=== PATIENT | female | born 1970 | race Caucasian/White ===

== ENCOUNTER → 2017-03-28 | Day surgery (SDC) | payer BC ==
[~2017-03-28] MED LIST: ALPR1TAB2 PO; CYAN10005 PO; EPINEPHrine SYRINGE 1 MG/10 ML SYRINGE IV ONE; EPINEPHrine SYRINGE 1 MG/10 ML SYRINGE ONE; HYDROmorphone 2 MG/ML VIAL IV PRN; IV RINGERS,LACTATED 1000ML 1,000 ML IV SCH; LIDOCAINE 1% 1 ML SYRINGE. ID PRN; LIDOCAINE 2% PF Vial for OR 5 ML VIAL. ONE; MIDAZOLAM HCL/PF 2 MG/2 ML VIAL. IV PRN; MORPHINE SULFATE 2 MG/ML DISP.SYRIN. IV PRN; OMEG92TA PO; ONDANSETRON PF 4 MG/2 ML VIAL. IV PRN; PRAS50CA PO; PROCHLORPERAZINE 10 MG/2 ML VIAL. IV PRN; PROPOFOL 40 ML IV ONE; fentaNYL PF VIAL 100 MCG/2 ML VIAL IV PRN
[2017-03-28 10:13] LABS: NEG OBC UR NEG; POS OBC UR POS
[2017-03-28 12:52] VITALS: BP 174/85
--- NOTE | 2017-03-28 13:46 | PREOP HP ---
DATE OF SERVICE: 03/28/2017 REQUESTING PHYSICIAN: ____. REASON FOR PROCEDURE: Change in bowel habits and rectal bleeding. HISTORY OF PRESENT ILLNESS: This is a 47-year-old woman who presented with change in bowel habits and rectal bleeding. ALLERGIES: ADHESIVE TAPE. PAST MEDICAL HISTORY: Anxiety, depression, hemorrhoid, and sleep apnea. FAMILY MEDICAL HISTORY: Significant for liver disease. SOCIAL HISTORY: No tobacco, alcohol, or IV drug abuse. MEDICATIONS: Xanax, , and vitamin D. PAST SURGICAL HISTORY: Parathyroidectomy and uterine ablation. REVIEW OF SYSTEMS: A 13-point review of systems was done. It is positive as per HPI and otherwise negative. PHYSICAL EXAMINATION: VITAL SIGNS: She is afebrile. Her vital signs are stable. GENERAL: She is a well-developed, well-nourished female, in no apparent distress. HEENT: Oropharynx is clear. CARDIOVASCULAR: S1, S2. LUNGS: Clear. ABDOMEN: Normoactive bowel sounds. Soft, nontender, nondistended. EXTREMITIES: No edema. NEUROLOGIC: Awake, alert, and oriented x 3. ASSESSMENT AND PLAN: 1. Change in bowel habits. 2. Rectal bleeding. Risks and benefits of the procedure including bleeding, perforation, were explained and she has agreed to proceed. Thank you for allowing me to participate in the care of this patient. PERLA MCKEON MD DR: SOMMER/maria luisa JOB#: [id number] / [id number]
--- NOTE | 2017-04-01 13:47 | PATHOLOGY ---
PATHOLOGY REPORT * * * * * * * * FINAL DIAGNOSIS: Colon biopsies, sigmoid colon polyp: - Tubular adenoma. COMMENT: Sections of the sigmoid colon biopsies reveal a tubular adenoma. There are three larger polypoid segments of tubular adenoma ranging from 1.1 to 1.5 cm in greatest dimension. There are additional smaller segments of tubular adenoma. There is no high-grade dysplasia or evidence of malignancy. REPORT ELECTRONICALLY SIGNED BY: William Warren M.D. DATE/TIME: 04/01/2017 13:47 * * * * * * * * GROSS PATHOLOGY: Received in formalin labeled "April Dee, sigmoid colon polyp," are three polypoid pieces of soft tamez tissue. The first polypoid piece of soft tamez tissue measures 1.5 x 1.4 x 1.3 cm, the margin is inked black and the tissue is sectioned perpendicular to the margin. The tissue is submitted entirely in cassette A1. The second polypoid piece of soft tamez tissue measures 1.3 x 1.0 x 1.0 cm, the margin is inked blue and the tissue is sectioned perpendicular to the margin and is submitted entirely in cassette A2. The third polypoid piece of soft tamez tissue measures 1.1 x 0.7 x 0.6 cm, the margin is inked red and the tissue is sectioned perpendicular to the margin. Also in the container are more than 10 pieces of soft tamez tissue measuring 2.2 x 0.9 x 0.4 cm in aggregate dimensions and range from less than 0.1 to 0.7 cm in greatest dimensions. The third polypoid piece of soft tamez tissue along with the smaller pieces of soft tamez tissue are submitted in its entirety in cassette A3. (NASEEM; 03/29/2017) INITIAL CPT CODE(S): A; 22437 Professional services performed by [employer] at [facility] [address] [place] [address] Technical services performed by [employer] at [address] [place] [address], [address], [place] [address]. SPECIMEN(S) RECEIVED: A.Sigmoid colon polyp CLINICAL HISTORY: [facility] PATIENT: APRIL PEÑA /AGE: 503/18/1970 (Age: 47) PATIENT #: [id number] ALT CASE #: SPECIMEN COLLECTION DATE: 03/28/2017 SPECIMEN RECEIVED DATE: 03/28/2017 [facility] - [id number] [address] - PHONE: [phone] * * * END OF REPORT * * *
== END | disposition home or self-care (01) ==
LOC: ENDOS 09:32
PROVIDERS: ATTEND Internal Medicine Gastroenterology
DX: D12.5 Benign neoplasm of sigmoid colon (principal); K64.0 First degree hemorrhoids; J45.909 Unspecified asthma, uncomplicated; F41.9 Anxiety disorder, unspecified; F32.9 Major depressive disorder, single episode, unspecified; Z86.39 Personal history of other endocrine, nutritional and metabolic disease
CPT/HCPCS: 45381; 45385; 81025; 88305; J0171; J2704